=== PATIENT | male | born 1985 | race Caucasian/White ===

== ENCOUNTER 2022-04-03 14:50 | Emergency (ER) | payer OTHER, SELFPAY ==
[2022-04-03 14:53] VITALS: BP 149/103; PULSE 98; RESP 18; TEMP 36; O2SAT 98; BMI 30.9
--- NOTE | 2022-04-03 15:49 | ED.SKABFB ---
HPI - Skin/Abscess/Foreign Bdy General Chief complaint: Skin/Abscess/Foreign Body Stated complaint: rash on back of neck Time Seen by Provider: 04/03/22 15:06 Source: patient Mode of arrival: ambulatory Limitations: no limitations History of Present Illness HPI narrative: 36-year-old male who is healthy presents with concern of rash noted to his neck since yesterday. Patient reports he is currently being treated for folliculitis with doxycycline. Patient reports he was at [facility] yesterday and did have the area of folliculitis drained. He does feel like that is better. However later yesterday he noticed a rash to the left and right side of his that seems different and that is why he is here today. Related Data Previous Rx's Medication Instructions Recorded clotrimazole 1 % topical cream 1 appl topical TID 4 weeks #90 04/03/22 grams Allergies Allergy/AdvReac Type Severity Reaction Status Date / Time No Known Allergies Allergy Verified 04/03/22 14:53 Review of Systems Review of Systems: Yes all other systems are reviewed and are negative Constitutional: Constitutional: Reports no additional constitutional complaints, Denies body ache(s), Denies chills, Denies fever(s), Denies headache(s) and Denies weakness Eyes: Eyes: Reports no additional eye complaints and Denies change in vision ENT: Reports system reviewed and no additional complaints, except as documented, Denies dizziness, Denies headache(s), Denies nasal congestion, Denies nasal discharge and Denies neck pain Cardiovascular: Cardiovascular: Reports no additional cardiovascular complaints, Denies chest pain, Denies leg edema and Denies dyspnea Respiratory: Respiratory: Reports no additional respiratory complaints, Denies cough and Denies dyspnea Gastrointestinal: Gastrointestinal: Reports no additional gastrointestinal complaints, Denies abdominal pain, Denies diarrhea, Denies nausea and Denies vomiting Genitourinary: Genitourinary: Denies urinary incontinence Musculoskeletal: Musculoskeletal: Reports no additional musculoskeletal complaints, Denies back pain, Denies arthralgias, Denies joint swelling, Denies neck pain, Denies numbness and Denies tingling Integumentary/Breasts: Skin/Breast: Reports system reviewed and no additional complaints, except as docu and Reports rash Neurologic: Reports system reviewed and no additional complaints, except as documented, Denies Abnormal speech present, Denies dizziness, Denies headache(s), Denies numbness, Denies tingling and Denies weakness PMFSH Past Medical History Attestation statement: The following information was validated with the patient. Source: old records reviewed and nursing notes reviewed Social History Social History Smoked in Last 30 Days: No Advance Directives: No Advance Directives Information Provided: Yes Physical Exam Vital Signs: Vital Signs: Last Vital Signs Temp 96.8 F 04/03/22 14:53 Pulse 98 04/03/22 14:53 Resp 18 04/03/22 14:53 BP 149/103 H 04/03/22 14:53 Pulse Ox 98 04/03/22 14:53 O2 Del Method 04/03/22 14:53 BMI result Body Mass Index 30.9 Const: General: cooperative, healthy appearing, comfortable and no acute distress Orientation/consciousness: patient oriented x3 Limitations: no limitations HEENT: Head: Yes normal to inspection Head images: 1. several areas of folliculitis noted Ears: hearing grossly normal bilaterally General nose exam: Normal external nose present Face and sinus: Yes normal facial exam Mouth: Normal oral and palatal mucosa present Throat: Yes posterior oropharynx normal Eyes: General: appearance normal, both eyes and all related structures Pupils: Equal, round and reactive pupils present Neck: Neck: Yes normal visual inspection Neck images: 1. There is a large circular area with a erythematous border with some scaling 2. small circular area with a erythematous border with some scaling Chest: Chest palpation & inspection: normal inspection of the chest Resp: Effort & Inspection: normal respiratory effort Auscultation: clear to auscultation bilaterally Cardio: Rate: regular rate Rhythm: regular rhythm Peripheral pulses: Peripheral pulses 2+ throughout GI: Inspection: Yes normal to inspection Palpation (GI): Soft to palpation and nontender Auscultation: normal bowel sounds Back/Spine/Pelvis: Thoracic/Lumbar Spine: thoracic and lumbar spine normal to inspection Skin: General skin exam: no rashes or lesions noted Neuro: General: patient oriented x3, no focal motor deficits and normal sensation to monofilament Cranial nerves: Yes Equal, round and reactive pupils present Cognition (Neuro): normal cognition Speech: No Abnormal speech present Gait exam (Neuro): Normal gait present Motor exam (neuro): 5/5 motor strength present throughout Extrem: General: Yes normal to inspection Medical Decision Making Medical Decision Making MDM Narrative: 36-year-old male currently being treated for folliculitis with doxycycline presents with separate area of rash over the left side of the neck noted yesterday. Patient also reports a small 2nd lesion on the right side of the neck. exam is consistent with tinea corporis. patient be treated with clotrimazole topical. Recommended continue doxycycline for the folliculitis. Exam is not consistent with SJS, TEN (no sloughing, area blanchable, patient non toxic) Differential Diagnosis Differential Diagnoses: The differential diagnosis associated with the presentation includes see above Discharge Plan Discharge Clinical Impression: Tinea Patient Disposition: Home, Self-Care Instructions: Tinea Corporis (ED) Additional Instructions: continue the doxycycline as well as warm compresses to your upper lip use antifungal for four-weeks Prescriptions: New clotrimazole 1 % cream 1 appl topical TID 28 Days Qty: 90 0RF Referrals: Physician,Nonstaff [Primary Care Provider] - 2 weeks (PCP as needed) Interventions: ED Discharge Assessment Last Done: 04/03/22 16:20 Discharge Date/Time: 04/03/22 16:20
--- NOTE | 2022-04-03 16:18 | PC.NURSE ---
patient a/ox4 . VSS . Went over discharge instructions as ordered . patient to follow up with primary care . no questions at this time .
== END 2022-04-03 16:20 | disposition home or self-care (01) ==
PROVIDERS: Emergency Provider Student in an Organized Health Care Education/Training Program
DX: B35.4 Tinea corporis (principal)
CPT/HCPCS: 99283; 99284